=== PATIENT | male | born 1935 | race Caucasian/White ===

== ENCOUNTER 2018-10-26 19:40 | Observation (INO) ==
[2018-10-26 20:18] LABS: Basophils % 0.1 % (0.1-2.0); Eosinophils # 0.1 K/mm3 (0.0-0.4); Eosinophils % 0.7 % (0.1-12.0); Hematocrit 41.1 % (42.0-52.0); Lymphocytes # 0.8 K/mm3 (0.7-4.5); Mean Corpuscular HGB Conc 31.6 g/dL (31.8-35.4); Mean Corpuscular Hemoglobin 26.8 pg (27.0-31.2); Mean Corpuscular Volume 84.8 fl (80-94); Mean Platelet Volume 10.5 fl (7.4-10.4); Monocytes # 0.4 K/mm3 (0.1-1.0); Monocytes % 2.5 % (1.7-9.3); Neutrophils # 14.9 K/mm3 (1.8-7.8); Neutrophils % 91.7 % (37.0-80.0); Platelet Count 216 K/mm3 (142-424); Red Blood Count 4.84 M/mm3 (4.60-6.20); Red Cell Distribution Width 16.7 % (11.5-17.5); White Blood Count 16.2 K/mm3 (4.8-10.8)
[2018-10-26 20:25] LABS: Albumin Level 3.5 gm/dL (3.4-5.0); Albumin/Globulin Ratio 0.8 (1.1-1.8); Anion Gap 14.2 mEq/L (5-15); Bilirubin,Total 0.7 mg/dL (0.2-1.0); Calcium 9.1 mg/dL (8.5-10.1); Globulin 4.5 gm/dl (1.3-3.2); Potassium 4.2 mmoL/L (3.5-5.1)
--- NOTE | 2018-10-26 20:44 | Emergency Department Note ---
ED Disposition Clinical Impression: HCAP (healthcare-associated pneumonia) Disposition: Admitted as Observation Condition on Discharge: Fair Referrals: Hakan Henderson MD [Primary Care Provider] - - Critical Care Critical Care Time: No Attestation: On 10/26/18, the high probability of a clinically significant, sudden or life threatening deterioration of the following system(s) required my full and direct attention, intervention and personal management. The time I documented below is in addition to time spent performing reported procedures but includes the following listed in this critical care notation. Medical Decision Making - Medical Records Medical records reviewed: Yes: I reviewed the patient's medical records. - Marvel Inquiry Pt receiving controlled substance: No Vital Signs: 10/26/18 19:42 Temperature 101.9 F H Temperature Source Rectal Pulse Rate [Right] 104 H Respiratory Rate 18 Blood Pressure [Right Arm] 125/65 Blood Pressure Mean [Right Arm] 85 02 Sat by Pulse Oximetry 96 - Lab Data Lab results reviewed: Yes: I reviewed the patient's lab results. Lab Results 10/26/18 19:42: WBC 16.2 H, RBC 4.84, Hgb 13.0 L, Hct 41.1 L, MCV 84.8, MCH 26.8 L, MCHC 31.6 L, RDW 16.7, Plt Count 216, MPV 10.5 H, Neut % (Auto) 91.7 H, Lymph % (Auto) 5.0 L, [place] % (Auto) 2.5, Eos % (Auto) 0.7, Baso % (Auto) 0.1, Neut # (Auto) 14.9 H, Lymph # (Auto) 0.8, [place] # (Auto) 0.4, Eos # (Auto) 0.1, Baso # (Auto) 0.0 10/26/18 19:42: Sodium 140, Potassium 4.2, Chloride 103, Carbon Dioxide 27, Anion Gap 14.2, BUN 43 H, Creatinine 0.89, Estimated Creat Clear 63, Estimated GFR 82, Est GFR ( Amer) 99, Glucose 91, Calcium 9.1, Total Bilirubin 0.7, AST 27, ALT 44, Alkaline Phosphatase 81, Total Protein 8.0, Albumin 3.5, Globulin 4.5 H, Albumin/Globulin Ratio 0.8 L 10/26/18 19:42: Lactate 2.9 H 10/26/18 20:20: Influenza Type A Ag Negative, Influenza Type B Ag Negative Result diagrams: 10/26/18 19:42 10/26/18 19:42 Orders (Tests/Meds): ED MEDICATIONS Generic Name Dose Route Start Last Admin Trade Name Freq PRN Reason Stop Dose Admin Sodium Chloride 1,000 mls @ 999 mls/hr 10/26/18 20:15 10/26/18 20:19 Sod Chlor 0.9% 1000ml Bag IV 10/26/18 21:15 999 mls/hr .Q1H1M LUIS Administration Sodium Chloride 10 ml 10/26/18 20:09 Saline Flush 10ml Syringe IV 11/25/18 20:08 NEEDED PRN Maintain IV Site Discontinued Medications Generic Name Dose Route Start Last Admin Trade Name Freq PRN Reason Stop Dose Admin Acetaminophen 650 mg 10/26/18 20:08 10/26/18 20:19 Acetaminophen 650mg Suppository RC 10/26/18 20:09 650 mg ONCE ONE Administration ORDERS Category Date Time Status XR chest portable Stat Exams 10/26/18 20:08 Taken Complete Blood Count Auto Diff Stat Lab 10/26/18 19:42 Results Urinalysis and Microscopic Stat Lab 10/26/18 20:08 Ordered Blood Culture Stat Micro 10/26/18 19:42 Received - Radiology Data #1 Image(s): Chest Image Reviewed: Yes I reviewed the patient's radiology image Preliminary Findings: Abnormal (lt pneumonia ) - Physician Consults Physician Consulted: sarah Reason -: Admission Fever HPI - General Chief Complaint: Fever Stated Complaint: fever Time Seen by Provider: 10/26/18 20:00 Mode of Arrival: EMS Limitations: Physical Limitations Description of Symptoms (Recalled from ER Triage Doc. by RN): pt sent to ed with c/o fever and chills. 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 - History of Present Illness HPI Narrative: pt with fever and sent to ed for eval - pt unable to give hx complaint: fever Onset (ago): day(s) - Related Data Home Medications Medication Instructions Recorded Confirmed Amlodipine Besylate [Amlodipine 5 mg * DAILY 10/26/18 10/26/18 10mg Tab] Ascorbic Acid [Vitamin C] 500 mg PO BID 10/26/18 10/26/18 Aspirin [Aspir 81] 81 mg PO DAILY 10/26/18 10/26/18 Baclofen 20 mg PO BID 10/26/18 10/26/18 Diphenoxylate HCl/Atropine 2.5 mg * Q6HP PRN 10/26/18 10/26/18 [Lomotil 2.5mg tablet] Famotidine [Pepcid 20mg Tablet] 20 mg PO BID 10/26/18 10/26/18 Hydrocodone/Acetaminophen [[place] 1 each PO Q6HP PRN 10/26/18 10/26/18 5-325 Tablet] LORazepam [Ativan 1mg tablet] 1 mg * Q6HP PRN 10/26/18 10/26/18 Lactulose [Lactulose 10gm/15ml 15 ml * Q48H 10/26/18 10/26/18 Oral Soln] Metoprolol Tartrate [Lopressor 25 mg PO BID 10/26/18 10/26/18 25mg tablet] Pantoprazole Sodium [Protonix 40mg 40 mg PO DAILY 10/26/18 10/26/18 tablet] Potassium Chloride 20 meq PO DAILY 10/26/18 10/26/18 Zinc Sulfate [Zinc-220] 220 mg PO DAILY 10/26/18 10/26/18 Allergies Allergy/AdvReac Type Severity Reaction Status Date / Time Penicillins Allergy Verified 10/26/18 20:03 tolmetin Allergy Verified 10/26/18 20:03 [facility] History - Hepatitis A Screen Drug use history?: No High risk sexual behaviors?: No History of sexually transmitted infection?: No Currently employed?: No Childcare worker?: No Do you have indoor plumbing?: Yes Do you have electricity?: Yes Attestation statement:: This patient has been screened for Hepatitis A risk factors. I have reviewed the patient's past medical history: Yes Medical History: Denies:: Diabetes Mellitus Type 1, Diabetes Mellitus Type 2 - Social History Alcohol Intake: never - Psychiatric History Expresses thoughts of harming self/others: None Suicide Plan Description: No Plan ROS Obtained: Yes unobtainable due to mental status Physical Exam - General General appearance: obtunded, other (contractures ) - Head Head exam: atraumatic - Eye Eye exam: Present: PERRL, EOMI. Absent: scleral icterus - ENT ENT exam: Present: mucous membranes dry - Neck Neck exam: Present: trachea midline - Respiratory Respiratory exam: Present: other (dec bs bilat ). Absent: respiratory distress - Cardiovascular Cardiovascular exam: Present: regular rate, systolic murmur - Abdominal Exam Abdominal exam: Present: soft - Extremities Exam Extremities exam: Present: other (no gross swelling ) - Neurological Exam Neurological exam: Present: other (obtunded with ho focal posturing ) - Skin Skin exam: Absent: rash
[2018-10-26 20:56] LABS: Anisocytosis 1+; Eosinophils % 1 % (0-3); Lymphocytes % 7 % (10-50); Monocytes % 2 % (2-9); Neutrophils % 90 % (42-76); Total Cells Counted 100
[2018-10-26 20:57] LABS: Ovalocytes 1+; Stomatocytes 1+
[2018-10-27 06:51] LABS: Eosinophils # 0.1 K/mm3 (0.0-0.4); Eosinophils % 0.5 % (0.1-12.0); Hematocrit 36.6 % (42.0-52.0); Lymphocytes % 8.6 % (10-50); Mean Corpuscular HGB Conc 31.4 g/dL (31.8-35.4); Mean Corpuscular Hemoglobin 27.1 pg (27.0-31.2); Mean Platelet Volume 9.7 fl (7.4-10.4); Monocytes # 0.7 K/mm3 (0.1-1.0); Monocytes % 5.9 % (1.7-9.3); Neutrophils # 9.8 K/mm3 (1.8-7.8); Platelet Count 185 K/mm3 (142-424); Red Blood Count 4.26 M/mm3 (4.60-6.20); Red Cell Distribution Width 16.9 % (11.5-17.5); White Blood Count 11.6 K/mm3 (4.8-10.8)
[2018-10-27 07:00] LABS: Anion Gap 10.9 mEq/L (5-15); Calcium 8.4 mg/dL (8.5-10.1); Potassium 3.9 mmoL/L (3.5-5.1)
[2018-10-27 07:01] LABS: Hemoglobin 11.6 g/dL (14.1-18.0)
[2018-10-27 09:43] LABS: Lymphocytes % 10 % (10-50); Monocytes % 6 % (2-9); Neutrophils % 84 % (42-76); Total Cells Counted 100
[2018-10-27 09:52] LABS: Hypochromasia 1+
--- NOTE | 2018-10-27 10:35 | Pharmacy Consult Notes ---
[facility] Pharmacy VTE Monitoring - Patient Demographics Admission date: 10/27/18 Report Date: 10/27/18 Time: 10:35 Allergies/Adverse Reactions: Patient Allergies Penicillins Allergy (Verified 10/26/18 20:03) tolmetin Allergy (Verified 10/26/18 20:03) Height: 1.88 m Weight: 79.577 kg Patient Problems: Current Active Problems HCAP (healthcare-associated pneumonia) (Acute) - VTE Risk Labs: VTE Related Lab Results Hgb 11.6 g/dL (14.1-18.0) L D 10/27/18 06:20 Hct 36.6 % (42.0-52.0) L 10/27/18 06:20 Plt Count 185 K/mm3 (142-424) 10/27/18 06:20 BUN 34 mg/dL (7-18) H 10/27/18 06:20 Creatinine 0.72 mg/dL (0.70-1.30) 10/27/18 06:20 Estimated Creat Clear 63 mL/min (50-200) 10/27/18 06:20 Was VTE Risk Assessment Performed: Yes VTE Score: 7 VTE Risk Level: Moderate Risk - Prophylaxis Location of Applied Device: Bilateral Lower Extremeties (DILIP HOSE ORDERED)
--- NOTE | 2018-10-27 11:52 | History & Physical Report ---
*Admission Date: 10/27/18 *Chief complaint: fever and SOA *History of present illness: Mr. Larson is an 82-year-old debilitated man due to strokes with vascular dementia who presented to the emergency room from [facility] due to fever, worsening respiratory symptoms. Otherwise unable to obtain further history from patient. In the ER consisted of labs and imaging. Chest x-ray showed left lower lobe pneumonia, elevated white count, tachycardia. Meeting criteria for sepsis. Initiated on broad-spectrum antibiotics, IV fluids, and admitted to medicine for further management. Unable to perform review of systems due to patient's mental status. [facility] History I have reviewed the patient's past medical history: Yes (Obtained from previous records and charts) Medical History: Reports:: Hypertension Denies:: Diabetes Mellitus Type 1, Diabetes Mellitus Type 2 - *Social History Alcohol Intake: never Occupational Status: retired, disabled Housing: assisted - Psychiatric History Expresses thoughts of harming self/others: None Suicide Plan Description: No Plan *Family Hx:: Unable to obtain Review of Systems - Review of Systems Review of systems:: unable to obtain (Patient non-verbal) Meds Home Medications Medication Instructions Recorded Confirmed Type Amlodipine Besylate [Amlodipine 5 mg * DAILY 10/26/18 10/26/18 History 10mg Tab] Ascorbic Acid [Vitamin C] 500 mg PO BID 10/26/18 10/26/18 History Aspirin [Aspir 81] 81 mg PO DAILY 10/26/18 10/26/18 History Baclofen 20 mg PO BID 10/26/18 10/26/18 History Diphenoxylate HCl/Atropine 2.5 mg FEED TUBE Q6HP PRN 10/26/18 10/27/18 History [Lomotil 2.5mg tablet] Famotidine [Pepcid 20mg Tablet] 20 mg PO BID 10/26/18 10/26/18 History Hydrocodone/Acetaminophen [[place] 1 each PO Q6HP PRN 10/26/18 10/26/18 History 5-325 Tablet] LORazepam [Ativan 1mg tablet] 1 mg G-TUBE Q6HP PRN 10/26/18 10/27/18 History Lactulose [Lactulose 10gm/15ml 15 ml * Q48H 10/26/18 10/26/18 History Oral Soln] Metoprolol Tartrate [Lopressor 25 mg PO BID 10/26/18 10/26/18 History 25mg tablet] Potassium Chloride 20 meq PO DAILY 10/26/18 10/27/18 History Zinc Sulfate [Zinc-220] 220 mg PO DAILY 10/26/18 10/27/18 History Acetaminophen [Acetaminophen 325mg 650 mg PO Q6HP PRN 10/27/18 10/27/18 History tab] Multivit-Minerals/Ferrous Gluc 15 ml PO DAILY 10/27/18 10/27/18 History [Centrum Multivit-Mineral Liq] Pantoprazole Sodium [Protonix 40mg 40 mg PO DAILY 10/27/18 10/27/18 History (granule) packet] Allergies Allergy/AdvReac Type Severity Reaction Status Date / Time Penicillins Allergy Verified 10/26/18 20:03 tolmetin Allergy Verified 10/26/18 20:03 Exam Vital signs and Labs for Last 24 Hours: Temp Pulse Resp BP Pulse Ox 100.1 F H 85 18 150/50 H 96 10/27/18 11:09 10/27/18 11:09 10/27/18 11:09 10/27/18 11:09 10/27/18 11:09 Laboratory Results - last 24 hr 10/26/18 19:42: WBC 16.2 H, RBC 4.84, Hgb 13.0 L, Hct 41.1 L, MCV 84.8, MCH 26.8 L, MCHC 31.6 L, RDW 16.7, Plt Count 216, MPV 10.5 H, Neut % (Auto) 91.7 H, Lymph % (Auto) 5.0 L, [place] % (Auto) 2.5, Eos % (Auto) 0.7, Baso % (Auto) 0.1, Neut # (Auto) 14.9 H, Lymph # (Auto) 0.8, [place] # (Auto) 0.4, Eos # (Auto) 0.1, Baso # (Auto) 0.0, Total Counted 100, Neutrophils % (Manual) 90 H, Lymphocytes % (Manual) 7 L, Monocytes % (Manual) 2, Eosinophils % (Manual) 1, Platelet Estimate Normal, RBC Morphology Not Reportable, Anisocytosis 1+, Ovalocytes 1+, Stomatocytes 1+ 10/26/18 19:42: Sodium 140, Potassium 4.2, Chloride 103, Carbon Dioxide 27, Anion Gap 14.2, BUN 43 H, Creatinine 0.89, Estimated Creat Clear 63, Estimated GFR 82, Est GFR ( Amer) 99, Glucose 91, Calcium 9.1, Total Bilirubin 0.7, AST 27, ALT 44, Alkaline Phosphatase 81, Total Protein 8.0, Albumin 3.5, Globulin 4.5 H, Albumin/Globulin Ratio 0.8 L 10/26/18 19:42: Lactate 2.9 H 10/26/18 20:20: Influenza Type A Ag Negative, Influenza Type B Ag Negative 10/26/18 23:55: Lactate 1.5 10/27/18 06:20: WBC 11.6 H D, RBC 4.26 L, Hgb 11.6 L D, Hct 36.6 L, MCV 86.0, MCH 27.1, MCHC 31.4 L, RDW 16.9, Plt Count 185, MPV 9.7, Neut % (Auto) 85.0 H, Lymph % (Auto) 8.6 L, [place] % (Auto) 5.9, Eos % (Auto) 0.5, Baso % (Auto) 0.0 L, Neut # (Auto) 9.8 H, Lymph # (Auto) 1.0, [place] # (Auto) 0.7, Eos # (Auto) 0.1, Baso # (Auto) 0.0, Total Counted 100, Neutrophils % (Manual) 84 H, Lymphocytes % (Manual) 10, Monocytes % (Manual) 6, Platelet Estimate Normal, Hypochromasia 1+ 10/27/18 06:20: Sodium 139, Potassium 3.9, Chloride 105, Carbon Dioxide 27, Anion Gap 10.9, BUN 34 H, Creatinine 0.72, Estimated Creat Clear 63, Estimated GFR 104, Est GFR ( Amer) 126 D, Glucose 94, Calcium 8.4 L, Magnesium 1.8 I & O for Last 24 hours: Intake & Output 10/24/18 10/25/18 10/26/18 10/27/18 23:59 23:59 23:59 23:59 Intake Total 999 / 1000 0 / 0 Balance 1000 / 999 0 / 0 Weight 78.5 kg 79.577 kg Narrative: Severely debilitated elderly gentleman, bedbound Opens eyes to verbal stimulation, nonverbal -Does not follow commands -Severe retractions of upper and lower extremities, thin extremities with loss of muscle mass -Ab soft, nontender -Suprapubic catheter in place with leakage of urine around -G-tube in his abdomen, clean dry and intact -Fair air movement bilaterally in lungs, crackles in left lower lobe, no rhonchi or wheeze -Heart regular Assessment and Plan (1) Sepsis Current visit: Yes Status: Acute Qualifiers: Sepsis type: sepsis due to unspecified organism Qualified Code(s): A41.9 - Sepsis, unspecified organism Category: Medical Code(s): A41.9 - Sepsis, unspecified organism Presented with tachycardia, leukocytosis, suspected source with pneumonia. Improving today. Continue antibodiotics. Blood cultures obtained. (2) HCAP (healthcare-associated pneumonia) Current visit: Yes Status: Acute Category: Medical Code(s): J18.9 - Pneumonia, unspecified organism Lower lobe pneumonia, healthcare acquired due to being a resident of a assisted. Continue antibiotics as ordered. Symptoms appear improving. Awaiting culture results. If remains negative, transition to antibiotics per tube with possible discharge to [facility] tomorrow. Currently no oxygen requirement. (3) Severe disability Current visit: Yes Status: Chronic Category: Medical Due to history of strokes, unable to participate in decision-making and goals of care. Surrogate is son.
--- NOTE | 2018-10-28 08:34 | Discharge Summary ---
General - General Admission date:: 10/26/18 Discharge date: 10/28/18 HPI HPI: Mr. Larson is an 82-year-old debilitated man due to strokes with vascular dementia who presented to the emergency room from [facility] due to fever, worsening respiratory symptoms. Otherwise unable to obtain further history from patient. In the ER consisted of labs and imaging. Chest x-ray showed left lower lobe pneumonia, elevated white count, tachycardia. Meeting criteria for sepsis. Initiated on broad-spectrum antibiotics, IV fluids, and admitted to medicine for further management. Unable to perform review of systems due to patient's mental status. Hospital Course Hospital Course: Mr. Larson was admitted to medicine for management of his pneumonia and sepsis. Initiated on broad-spectrum antibiotics. Remained stable on room air. Had improvement in vitals with resolution of fever. Transitioned to oral Levaquin to complete full course for pneumonia treatment. He will dynamically stable and at baseline level of function meeting discharge criteria. Plan to discharge back to [facility] for continued management. Objective Vital signs: Temp Pulse Resp BP Pulse Ox 97.7 F 81 20 132/57 L 98 10/28/18 03:59 10/28/18 03:59 10/28/18 03:59 10/28/18 03:59 10/28/18 03:59 Narrative: Severely debilitated elderly gentleman, bedbound Opens eyes to verbal stimulation, nonverbal -Does not follow commands -Severe retractions of upper and lower extremities, thin extremities with loss of muscle mass -Ab soft, nontender -Suprapubic catheter in place with leakage of urine around -G-tube in his abdomen, clean dry and intact -Fair air movement bilaterally in lungs, crackles in left lower lobe, no rhonchi or wheeze -Heart regular, systolic murmur Results Labs on day of discharge: Labs from last 24 hours 10/27/18 06:20 Total Counted 100 Neutrophils % (Manual) 84 H Lymphocytes % (Manual) 10 Monocytes % (Manual) 6 Platelet Estimate Normal Hypochromasia 1+ Preliminary micro results at discharge 10/26/18 19:42 Blood Culture - Preliminary Blood 10/26/18 19:42 Blood Culture - Preliminary Blood DS: Diagnosis - Discharge Diagnosis (1) Sepsis Status: Resolved (2) HCAP (healthcare-associated pneumonia) Status: Acute (3) Severe disability Status: Chronic Discharge Plan - Patient Discharge Instructions ACTIVITY: Limited activity DIET: continue same diet Patient Instructions: DI for Pneumonia -- Adult - Follow up Plan Follow up with: Hakan Henderson MD [Primary Care Provider] - Disposition: er Intermediate Care Fac Home Medications: Home Medications Medication Instructions Recorded Confirmed Type Amlodipine Besylate [Amlodipine 5 mg * DAILY 10/26/18 10/26/18 History 10mg Tab] Ascorbic Acid [Vitamin C] 500 mg PO BID 10/26/18 10/26/18 History Aspirin [Aspir 81] 81 mg PO DAILY 10/26/18 10/26/18 History Baclofen 20 mg PO BID 10/26/18 10/26/18 History Diphenoxylate HCl/Atropine 2.5 mg FEED TUBE Q6HP PRN 10/26/18 10/27/18 History [Lomotil 2.5mg tablet] Famotidine [Pepcid 20mg Tablet] 20 mg PO BID 10/26/18 10/26/18 History Hydrocodone/Acetaminophen [[place] 1 each PO Q6HP PRN 10/26/18 10/26/18 History 5-325 Tablet] LORazepam [Ativan 1mg tablet] 1 mg G-TUBE Q6HP PRN 10/26/18 10/27/18 History Lactulose [Lactulose 10gm/15ml 15 ml * Q48H 10/26/18 10/26/18 History Oral Soln] Metoprolol Tartrate [Lopressor 25 mg PO BID 10/26/18 10/26/18 History 25mg tablet] Potassium Chloride 20 meq PO DAILY 10/26/18 10/27/18 History Zinc Sulfate [Zinc-220] 220 mg PO DAILY 10/26/18 10/27/18 History Acetaminophen [Acetaminophen 325mg 650 mg PO Q6HP PRN 10/27/18 10/27/18 History tab] Multivit-Minerals/Ferrous Gluc 15 ml PO DAILY 10/27/18 10/27/18 History [Centrum Multivit-Mineral Liq] Pantoprazole Sodium [Protonix 40mg 40 mg PO DAILY 10/27/18 10/27/18 History (granule) packet] levoFLOXacin [Levaquin 750mg 750 mg G-TUBE DAILY #7 tab 10/28/18 Rx tablet] Prescriptions/Medication Reconciliation: New levoFLOXacin [Levaquin 750mg tablet] 750 mg G-TUBE DAILY #7 tab Continue LORazepam [Ativan 1mg tablet] 1 mg G-TUBE Q6HP PRN PRN Reason: Anxiety Metoprolol Tartrate [Lopressor 25mg tablet] 25 mg PO BID Famotidine [Pepcid 20mg Tablet] 20 mg PO BID Ascorbic Acid [Vitamin C] 500 mg PO BID Baclofen 20 mg PO BID Amlodipine Besylate [Amlodipine 10mg Tab] 5 mg * DAILY Potassium Chloride 20 meq PO DAILY Zinc Sulfate [Zinc-220] 220 mg PO DAILY Aspirin [Aspir 81] 81 mg PO DAILY Diphenoxylate HCl/Atropine [Lomotil 2.5mg tablet] 2.5 mg FEED TUBE Q6HP PRN PRN Reason: Diarrhea Pantoprazole Sodium [Protonix 40mg (granule) packet] 40 mg PO DAILY Acetaminophen [Acetaminophen 325mg tab] 650 mg PO Q6HP PRN PRN Reason: As Needed For Fever Or Pain Multivit-Minerals/Ferrous Gluc [Centrum Multivit-Mineral Liq] 15 ml PO DAILY Hydrocodone/Acetaminophen [[place] 5-325 Tablet] 1 each PO Q6HP PRN PRN Reason: pain Lactulose [Lactulose 10gm/15ml Oral Soln] 15 ml * Q48H
== END 2018-10-28 10:50 ==
LOC: 2ND 19:40 → ER 19:40 → OBSVTOIN 21:25 → INTOOBSV 21:25 → 2ND 21:26
PROVIDERS: ADMIT Family Medicine; ATTEND Internal Medicine Adolescent Medicine
CPT/HCPCS: 36415; 71010; 71045; 80048; 80053; 83605; 83735; 85007; 85025; 87040; 87077; 87186; 87275; 87276; 96365; 96367; 99284; G0378; J0692; J1956